=== PATIENT | female | born 1970 | race Caucasian/White ===

== ENCOUNTER → 2019-03-29 | Outpatient (CLI) | payer OTHER ==
[~2019-03-29] VITALS: Ht 162.6 cm; Wt 57.2 kg
[~2019-03-29] MED LIST: CALCIUM 500 +1 EAC5 PO; CITRUCEL CAPLET1 TA1 PO; DEPO-PROVE150 MG/1 M IM; FLAXSEED1000 MG PO; LEXAPRO 10 MG T10 MG PO; LYRICA 50 MG50 MG; MULTIVITAMINS1 EAC7 PO; NORTRIPTYLINE H25 M3 GT; ZANTAC 150MG T150 MG PO
[2019-03-29 13:11] VITALS: BP 130/85
--- NOTE | 2019-03-29 13:13 | NUR ---
Pain Clinic Assessment: 1. History of Osteoarthritis: NO History of Rheumatoid Arthritis: NO 2. Height: 5 ft. 4 in. 162.6 cm. Weight: 126.0 lb. oz. 57.153 kg. Patient's BMI: 21.6 3. Vital Signs: BP: 130/85 Pulse: 95 Resp: 14 Temp: 02 Sat: 100 ECG Mon: 4. Pain Intensity: 4 5. Fall Risk: Dizziness: N Needs help standing or walking: N Fallen in the last 3 months: N Fall risk comments: 6. Patient on Blood Thinner: None 7. History of Hypertension: N 8. Opioid Therapy greater than 6 weeks: N Opiate Contract Signed: 9. Risk Assessment Tool Provided: 10. Functional Assessment Tool: 11. Recreational Drug Use: Unknown Drug Type: Tobacco Use: Never Smoker Tobacco Type: Amount or Packs/day: How Many Years: Alcohol Use: Yes Frequency: Daily Quant: 1 DRINK A DAY
--- NOTE | 2019-04-02 18:13 | HPC ---
[facility] [address] [address] PAIN MANAGEMENT CONSULTATION Name: JASPER MCGOVERN Room #: REG [facility].#: [id number] Admission: 03/29/19 ������������������ Attend Phys: Aden Desai MD Discharge: ������������������ Date of : 66 Report #: [id number] THIS REPORT FOR: //name// CC: Kvng BELL MD Physician staff Aden Desai DATE OF SERVICE: 03/29/2019 Followup visit for cervical radiculopathy. The patient is a kirit 48-year-old female, who I am seeing again today for consideration of a cervical epidural injection. She has had an anterior cervical diskectomy and fusion performed in July 2017. She has since surgery had intermittent problems with neck pain with radiation into her left arm into her fingers. This is associated with weakness. It follows the C7-C8 distribution below the level of her fusion. She has been treated successfully with cervical epidural injections. Her most recent injection was performed at [facility] over 6 months ago. She had excellent response with 80-90% pain relief, improvement in the strength in her arm and the pain relief and improvement in function was sustained over a long period of time. Symptoms are now gradually returning and she would like to go forward with a repeat injection. She is certainly not interested in additional surgery and does not want to take any additional medication and wants to avoid opioid medication completely. She describes her pain as intermittent, burning intensity can be as high as a 9/10 today, average pain is a 5/10. MEDICATIONS: Lyrica, nortriptyline, Zantac, multivitamins and Lexapro. ALLERGIES: None. PHYSICAL EXAMINATION: GENERAL: She is pleasant, 48-year-old. VITAL SIGNS: Her blood pressure is 130/85, heart rate 95, respirations 14. She is 5 feet 4 inches, 126 pounds. MUSCULOSKELETAL: Cervical range of motion is good. She has some increase in her radicular symptoms in the left arm with neck extension. All other motions are within normal limits and did not exacerbate pain. She has a notable hyperreflexia in the upper extremities, more significant on the left biceps, triceps and brachioradialis 2 to 3+. She has hyperreflexia in the lower extremities 3 to 4+. She does not have clonus. Small Engine Specialist strength is diminished on the left in comparison to the right as well as biceps strength comparison much weaker on the left than the right. She has some notable weakness also with triceps. Sensation is diminished around the C7-C8 distribution. [address] [address] PAIN MANAGEMENT CONSULTATION Name: JASPER MCGOVERN Room #: REG [facility]#: [id number] Admission: 03/29/19 ������������������ Attend Phys: Aden Desai MD Discharge: ������������������ Date of : 66 Report #: [id number] X-rays: No new x-rays are available at this time. IMPRESSION: Cervical radiculopathy recurrent. She is status post anterior cervical diskectomy and fusion. PLAN: We discussed long-term management of this condition and it is hoped that over time she will continue to show progressive improvement and will ultimately no longer need epidural injections. For now as a tool providing good improvement and relief and I would like to go forward with the second cervical epidural injection within 7-9 months. She will return to the pain clinic once we have received preauthorization from her insurance company. ��������������������������������������������� <ELECTRONICALLY SIGNED> ���������������������������������������� By: Aden Desai MD ��������������������������������������������� 04/02/19 1813 [id number] Aden Desai MD /nt
== END ==
LOC: PAIN 12-28 13:06
DX: M54.12 Radiculopathy, cervical region (principal); Z98.1 Arthrodesis status; Z79.899 Other long term (current) drug therapy

== ENCOUNTER → 2019-04-26 | Outpatient (CLI) | payer OTHER ==
[~2019-04-26] VITALS: Ht 162.6 cm; Wt 59.7 kg
[2019-04-26 12:55] VITALS: BP 132/87
--- NOTE | 2019-04-26 13:07 | NUR ---
Pain Clinic Assessment: 1. History of Osteoarthritis: NO History of Rheumatoid Arthritis: NO 2. Height: 5 ft. 4 in. 162.6 cm. Weight: 131.6 lb. oz. 59.693 kg. Patient's BMI: 22.6 3. Vital Signs: BP: 132/87 Pulse: 87 Resp: 14 Temp: 02 Sat: 100 ECG Mon: 4. Pain Intensity: 5-6 5. Fall Risk: Dizziness: N Needs help standing or walking: N Fallen in the last 3 months: N Fall risk comments: 6. Patient on Blood Thinner: None 7. History of Hypertension: N 8. Opioid Therapy greater than 6 weeks: N Opiate Contract Signed: 9. Risk Assessment Tool Provided: 10. Functional Assessment Tool: 11. Recreational Drug Use: Unknown Drug Type: Tobacco Use: Never Smoker Tobacco Type: Amount or Packs/day: How Many Years: Alcohol Use: Yes Frequency: Quant:
--- NOTE | 2019-05-01 17:25 | HPC ---
[facility] [address]ant [address] [place] [address] PAIN MANAGEMENT CONSULTATION Name: JASPER MCGOVERN [id number] Admission: 04/26/19 ������������������ Attend Phys: Aden Desai MD Discharge: ������������������ Date of : 66 Report #: [id number] THIS REPORT FOR: //name// CC: Kvng Desai DATE OF SERVICE: 04/26/2019 Followup visit for cervical radiculopathy. The patient returns to the pain clinic today for a repeat cervical epidural injection. She has had a previous anterior cervical diskectomy and fusion and has been treated successfully with intermittent cervical injections. She received injections prior to her surgery as well as dating back as far as 2005, so she is well familiar with the procedure. She reports that the pain has been increasing somewhat and the pain intensity is a 5-6/10. She describes intermittent burning, numbness and tingling, almost exclusively in the left arm and neck and involves the third, fourth and fifth digits, consistent with C7-C8 radiculopathy. Pain is worsened with activity. She has alleviated over time and she receives improvement from her epidural injections to the point that she receives injections only about once every 6 months or so. Her last injection was in July at [facility]. MEDICATIONS: Medications reviewed and she continues on Lexapro, multivitamins, nortriptyline 25 mg at bedtime and Lyrica 75 mg b.i.d. ALLERGIES: None. PHYSICAL EXAMINATION: GENERAL: Pleasant female. MUSCULOSKELETAL: Cervical range of motion is adequate. Radicular symptoms with neck extension. Numbness and tingling in the C7-C8 distribution on the left. Hyperreflexia noted in the upper extremities and in the lower extremities. No clonus. IMPRESSION: Cervical radiculopathy, status post anterior cervical diskectomy and fusion. PROCEDURE: Repeat epidural steroid injection under fluoroscopic guidance. DESCRIPTION OF PROCEDURE: She was taken to the fluoroscopic suite, placed prone and skin prepped with ChloraPrep. Skin anesthetized over the C7-T1 interspace. [facility] [address] [place] [address] PAIN MANAGEMENT CONSULTATION Name: JASPER MCGOVERN Room #: REG [facility]#: [id number] Admission: 04/26/19 ������������������ Attend Phys: Aden Desai MD Discharge: ������������������ Date of : 66 Report #: [id number] A 20-gauge Tuohy epidural needle was advanced first attempt in the epidural space with loss of resistance technique. There was no blood or CSF aspirated. A 1 mL of Omnipaque injected. Good spread of dye observed in the epidural space followed by 3 mL of 0.5% lidocaine mixed with 80 mg triamcinolone. She tolerated the procedure well, was observed for 45 minutes and discharged. Followup visit planned as needed. ��������������������������������������������� <ELECTRONICALLY SIGNED> ���������������������������������������� By: Aden Desai MD ��������������������������������������������� 05/01/19 1725 [id number] MD errol Hutchins
== END | disposition home or self-care (01) ==
LOC: PAIN 06:59
DX: M54.12 Radiculopathy, cervical region (principal); G89.29 Other chronic pain; Z98.890 Other specified postprocedural states; Z79.899 Other long term (current) drug therapy

== ENCOUNTER → 2020-01-10 | Outpatient (CLI) | payer OTHER ==
[~2020-01-10] VITALS: Ht 162.6 cm; Wt 57.2 kg
[~2020-01-10] MED LIST changes: +PEPCID40 MG PO
--- NOTE | ~2020-01-10 | HPC ---
[facility] [place] [address] PAIN MANAGEMENT CONSULTATION Name: JASPER MCGOVERN Room #: REG [facility].#: [id number] Admission: 01/10/20 Attend Phys: Aden Desai MD Discharge: Date of : 66 Report #: [id number] THIS REPORT FOR: cc: Kvng Martinez MD,Kvng Desai,Aden Jolley MD ~ CC: Kvng Desai DATE OF SERVICE: 01/10/2020 Followup visit for cervical radiculopathy. The patient returns to pain clinic today to discuss a repeat cervical epidural injection. She has had an anterior cervical diskectomy and fusion at C5-C6. She has responded favorably to intermittent epidural injections once symptoms begin to be become more radicular into her arms. She is having increasing numbness and pain into her left arm as before. She did have a new MRI performed on 11/09/2019. This shows that there is no new spinal stenosis or neural foraminal compromise at C5-C6. A small nodular thyroid was noted and passed on to her primary care physician. MEDICATIONS: Pregabalin, nortriptyline, multivitamins, Pepcid. ALLERGIES: None. PHYSICAL EXAMINATION: GENERAL: She is a pleasant, slender female, BMI 21.6. VITAL SIGNS: Blood pressure 137/92, heart rate 94, respirations 16, O2 sat is 96. MUSCULOSKELETAL: Cervical range of motion is slightly limited in extension, rotation and lateral tilt. Examination of the upper extremities reveals normal reflexes biceps, triceps and brachioradialis. Outreach Worker strength, biceps and triceps strength are normal. Deep tendon reflexes in the lower extremities are 2+ at knees and ankles. Sensation normal. Gait is normal without antalgic features and no spasticity. Graff's is negative. IMPRESSION: Cervical radiculopathy, status post C5-C6 anterior cervical diskectomy and fusion. She has responded very well to this injection with many months of good pain relief. She does not want to pursue another surgical option. I think we can safely provide these injections intermittently as long as they continue to provide significant and lasting relief. [facility] [address] [place] [address] PAIN MANAGEMENT CONSULTATION Name: JASPER MCGOVERN Delmy Room #: REG [facility].#: [id number] Admission: 01/10/20 Attend Phys: Aden Desai MD Discharge: Date of : 66 Report #: [id number] Procedure is understood by the patient, reviewed the details, showed pictures from our previous injection. We will seek preauthorization from her [employer] insurance and bring her back in the clinic next week for the injection. By: [id number] Aden Desai MD /nt
[2020-01-10 13:02] VITALS: BP 137/92
--- NOTE | 2020-01-10 13:25 | NUR ---
Pain Clinic Assessment: 1. History of Osteoarthritis: NO History of Rheumatoid Arthritis: NO 2. Height: 5 ft. 4 in. 162.6 cm. Weight: 126.0 lb. oz. 57.153 kg. Patient's BMI: 21.6 3. Vital Signs: BP: 137/92 Pulse: 94 Resp: 16 Temp: 02 Sat: 96 ECG Mon: 4. Pain Intensity: 4-5 5. Fall Risk: Dizziness: N Needs help standing or walking: N Fallen in the last 3 months: N Fall risk comments: 6. Patient on Blood Thinner: None 7. History of Hypertension: N 8. Opioid Therapy greater than 6 weeks: N Opiate Contract Signed: 9. Risk Assessment Tool Provided: 0-LOW RISK 10. Functional Assessment Tool: 11. Recreational Drug Use: Unknown Drug Type: Tobacco Use: Never Smoker Tobacco Type: Amount or Packs/day: How Many Years: Alcohol Use: Yes Frequency: Quant:
== END ==
LOC: PAIN 07:02
DX: M54.12 Radiculopathy, cervical region (principal); M43.22 Fusion of spine, cervical region

== ENCOUNTER → 2020-05-22 | Outpatient (CLI) | payer OTHER ==
[~2020-05-22] VITALS: Ht 162.6 cm; Wt 60.9 kg
--- NOTE | ~2020-05-22 | HPC ---
[facility] [address] [place] [address] PAIN MANAGEMENT CONSULTATION Name: JASPER MCGOVERN Room #: REG [facility] Jun#: [id number] Admission: 05/22/20 Attend Phys: Aden Desai MD Discharge: Date of : 66 Report #: [id number] THIS REPORT FOR: cc: Kvng Martinez MD,Kvng Desai,Aden Jolley MD ~ CC: Kvng Desai DATE OF SERVICE: 05/22/2020 Followup visit for cervical radiculopathy, left C5 through C7 distribution, chronic. 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 She has already had an anterior cervical diskectomy and fusion performed in July 2017 at C6-C7. She still has pain in her neck and radiating pain into her left arm that follows the third, fourth, and fifth finger consistent with C6-C7, C7-C8 distribution. Epidural injections have shown benefit and she gets them periodically. Her last injection was on 04/26/2019, so it has been now 13 months since her last injection. A new MRI was performed on 11/09/2019 and I reviewed that report. There are no surgical lesions, but a negligible spondylolisthesis at C5-C6. MEDICATIONS: Lyrica, nortriptyline, multivitamins, Pepcid. ALLERGIES: None. PHYSICAL EXAMINATION: GENERAL: Pleasant female. VITAL SIGNS: Blood pressure is 137/92, heart rate 94, respirations 16, O2 sat 96, 5 feet 4 inches, 21.6 BMI. MUSCULOSKELETAL: Moves independently. No spasticity or antalgic features to her gait. Range of motion of the neck reproduces symptoms in the left arm, particularly extension. Surveillance Camera Technician strength, biceps, triceps strength are normal. Deep tendon reflexes are 2+ in the upper extremities, 2-3+ in the lower extremities at the knee and ankle. Sensation is normal. Graff's is negative. IMPRESSION: Left cervical radiculopathy involving the C6, C7, C8 distribution on the left. RECOMMENDATIONS: Cervical epidural injection under fluoroscopic guidance. [facility] [address] [place] [address] PAIN MANAGEMENT CONSULTATION Name: NICOLLEHUANGJASPER Brock Room #: [facility]#: [id number] Admission: 05/22/20 Attend Phys: Aden Desai MD Discharge: Date of : 66 Report #: [id number] PROCEDURE: After informed consent, she was taken to fluoroscopic suite, placed prone, skin prepped with ChloraPrep. Skin anesthetized over C6-C7. A 20-gauge Tuohy epidural needle advanced in the epidural space to left paramedian on the first attempt. There was no blood or CSF aspirated. A 0.5 mL of Omnipaque injected. Good spread of dye observed bilaterally into the lateral recess, it was followed then by 3 mL of 0.5% lidocaine mixed with 80 mg of triamcinolone. She tolerated the procedure well and was observed for 45 minutes and discharged. Follow up as needed. By: [id number] Aden Desai MD /nt
[2020-05-22 09:18] VITALS: BP 127/90
--- NOTE | 2020-05-22 09:29 | NUR ---
Pain Clinic Assessment: 1. History of Osteoarthritis: NO History of Rheumatoid Arthritis: NO 2. Height: 5 ft. 4 in. 162.6 cm. Weight: 134.2 lb. oz. 60.873 kg. Patient's BMI: 23.0 3. Vital Signs: BP: 127/90 Pulse: 74 Resp: 14 Temp: 02 Sat: 100 ECG Mon: 4. Pain Intensity: 4-5 5. Fall Risk: Dizziness: N Needs help standing or walking: N Fallen in the last 3 months: N Fall risk comments: 6. Patient on Blood Thinner: None 7. History of Hypertension: N 8. Opioid Therapy greater than 6 weeks: N Opiate Contract Signed: 9. Risk Assessment Tool Provided: 0-LOW RISK 10. Functional Assessment Tool: 11. Recreational Drug Use: Never Drug Type: Tobacco Use: Never Smoker Tobacco Type: Amount or Packs/day: How Many Years: Alcohol Use: Yes Frequency: Daily Quant: 1 drink/day
== END | disposition home or self-care (01) ==
LOC: PAIN 02-07 09:18
PROVIDERS: ATTEND Anesthesiology Pain Medicine
DX: M54.12 Radiculopathy, cervical region (principal); G89.29 Other chronic pain; Z98.890 Other specified postprocedural states; Z79.899 Other long term (current) drug therapy